=== PATIENT | male | born 1965 | race Caucasian/White ===

== ENCOUNTER → 2017-05-31 | Outpatient (CLI) | payer OTHER ==
[~2017-05-31] MED LIST: MULT-506 PO
--- NOTE | 2017-05-31 07:38 | DIAGNOSTIC IMAGING REPORT ---
RIGHT SHOULDER MIN 2 VIEWS ROUTINE CLINICAL HISTORY: Right shoulder pain and weakness COMPARISON: None. DISCUSSION: No fractures or dislocations are visualized. Degenerative changes are present within the chromic clavicular joint. There are corticated ossicles visualized superior to the AC joint. IMPRESSION: 1. No fractures or dislocations 2. Degenerative changes in the AC joint with superior corticated ossicles Electronically signed by: Mehul Kirk M.D. 05/31/2017 7:37 AM Dictated Date/Time: 05/31/2017 7:36 AM
== END | disposition home or self-care (01) ==
LOC: C.RAD 07:16
PROVIDERS: ATTEND Family Medicine
DX: M25.511 Pain in right shoulder (principal)

== ENCOUNTER → 2017-07-25 | Outpatient (CLI) | payer OTHER ==
--- NOTE | 2017-07-25 07:50 | DIAGNOSTIC IMAGING REPORT ---
RIGHT SHOULDER MRI HISTORY: RIGHT SHOULDER PAIN TECHNIQUE: Multiplanar multisequence MRI of the right shoulder was performed without contrast. COMPARISON STUDY: Right shoulder 05/31/2017. FINDINGS: AC joint: Severe arthrosis demonstrated by joint space narrowing, subchondral cystic change, marginal osteophytes, and corticated ossific density superiorly. Rotator cuff: The subscapularis, teres minor, and infraspinatus tendons are intact. Partial undersurface tear involving the majority of the supraspinatus tendon. This includes a focal high-grade component at the distal supraspinous tendon which measures 5 mm in length. Small cystic focus within the infraspinatus muscle which measures 18 x 6 mm. This favors a small ganglion cyst. Labrum: Increased intrasubstance signal within the superior labrum consistent with degeneration. No definite evidence for labral tear. Biceps tendon: Intact Bones: No fracture or dislocation. Questionable increased signal within the coronal T2 sequences at the humeral head is likely due to incomplete fat saturation. Cartilage: Intact Miscellaneous: No significant joint effusion. IMPRESSION: 1. Partial tear involving the majority of the supraspinatus tendon. No evidence for full-thickness rotator cuff tear. 2. Severe AC joint arthrosis. 3. Mild degeneration within the labrum without evidence for tear. Electronically signed by: Swapnil Diaz M.D. 07/25/2017 7:49 AM Dictated Date/Time: 07/25/2017 7:30 AM
== END | disposition home or self-care (01) ==
PROVIDERS: ATTEND Orthopaedic Surgery
DX: M75.111 Incomplete rotator cuff tear or rupture of right shoulder, not specified as traumatic (principal); M19.011 Primary osteoarthritis, right shoulder